=== PATIENT | female | born 1980 | race Caucasian/White ===

== ENCOUNTER 2018-05-15 20:22 | Emergency (ER) | payer SELFPAY ==
--- NOTE | 2018-05-15 22:18 | RADIOLOGY REPORT (SQ) ---
EXAM DESCRIPTION: XR CHEST 1 VIEW COMPLETED DATE/TME: 05/15/2018 21:48 CLINICAL HISTORY: 38 years, Female, sob COMPARISON: None. NUMBER OF VIEWS: 1 TECHNIQUE: Portable chest LIMITATIONS: None. FINDINGS: Heart size normal. Lungs clear. No pneumothorax IMPRESSION: Negative chest copyright 2011 [employer]- All Rights Reserved
[2018-05-15 22:35] LABS: ABSOLUTE BASOPHILS # (AUTO) 0.1 10^3/uL (0.0-0.2); ABSOLUTE EOSINOPHILS # (AUTO) 0.4 10^3/uL (0.0-0.6); ABSOLUTE LYMPHOCYTES (AUTO) 2.4 10^3/uL (0.5-4.7); ABSOLUTE MONOCYTES (AUTO) 0.5 10^3/uL (0.1-1.4); ABSOLUTE NEUT (AUTO) 6.6 10^3/uL (1.7-8.2); BASOPHILS % (AUTO) 0.9 % (0-2); EOSINOPHILS % (AUTO) 4.1 % (0-6); HEMATOCRIT 43.5 % (36.0-47.0); HEMOGLOBIN 15.4 g/dL (12.0-15.5); LYMPHOCYTES % (AUTO) 23.9 % (13-45); MEAN CORPUSCULAR HGB CONC 35.4 g/dL (32.0-36.0); MEAN CORPUSCULAR VOLUME 88 fl (80-97); MONOCYTES % (AUTO) 4.7 % (3-13); PLATELET COUNT 303 10^3/uL (150-450); RED BLOOD COUNT 4.97 10^6/uL (3.72-5.28); RED CELL DISTRIBUTION WIDTH 13.9 % (11.5-14.0); SEGMENTED NEUTROPHILS % (AUTO) 66.4 % (42-78); TOTAL CELLS COUNTED % (AUTO) 100 %; WHITE BLOOD COUNT 9.9 10^3/uL (4.0-10.5)
[2018-05-15 22:47] LABS: BLOOD UREA NITROGEN 11 mg/dL (7-20); CALCIUM 7.3 mg/dL (8.4-10.2); CARBON DIOXIDE 29 mmol/L (22-30); CHLORIDE 102 mmol/L (98-107); GLUCOSE 100 mg/dL (75-110); POTASSIUM 3.5 mmol/L (3.6-5.0)
[2018-05-15 22:52] LABS: ANION GAP 1 (5-19)
[2018-05-15 22:56] LABS: NT PRO BNP 83 pg/mL (<125)
[2018-05-15 22:59] LABS: TROPONIN I < 0.012 ng/mL
[2018-05-15 23:30] LABS: FREE T3 6.08 pg/mL (2.77-5.27); FREE T4 (FREE THYROXINE) 1.3 ng/dL (0.78-2.19)
[2018-05-15 23:44] LABS: THYROID STIMULATING HORMONE 8.2 uIU/mL (0.47-4.68)
--- NOTE | 2018-05-16 00:02 | ER Document Report ---
ED General - General Chief Complaint: Pedal Edema Stated Complaint: SWELLING,WEAKNESS Time Seen by Provider: 05/15/18 21:47 Primary Care Provider: ARTURO RUIZ PA-C [Primary Care Provider] - Follow up as needed Notes: Patient is a 38-year-old female with a past medical history of hypothyroidism after having her right lobe of her thyroid resected who presents with 7 months of intermittent bilateral lower extremity edema that has become much more pronounced within the last 24 hours. Patient states that the swelling was on and off in the past, had been seen in urgent care who she uses her primary care doctor. She states that they had started her on diuretics but that it did not provide any measurable relief. Became concerned when the swelling became markedly worse in the last 24 hours. Describes a tense, throbbing, moderate to severe pain in the bilateral lower extremities that is equal and symmetric. She denies any history of similar symptoms in the past. She has no history of VT E in the past. Does not use any form of estrogen. Has had a tubal ligation. Denies any history of orthopnea but does state that she feels more winded more easily. No chest pain. TRAVEL OUTSIDE OF THE [place] IN LAST 30 DAYS: No - Related Data Allergies/Adverse Reactions: benzonatate [From Tessalon Perles] Allergy (Verified 05/15/18 22:05) Sulfa (Sulfonamide Antibiotics) Allergy (Verified 05/15/18 22:05) Past Medical History - General Information source: Patient - Social History Smoking Status: Never Smoker Frequency of alcohol use: None Drug Abuse: None Lives with: Spouse/Significant other Family History: Reviewed & Not Pertinent Patient has suicidal ideation: No Patient has homicidal ideation: No Renal/ Medical History: Denies: Hx Peritoneal Dialysis Review of Systems - Review of Systems Notes: Constitutional: Negative for fever. HENT: Negative for sore throat. Eyes: Negative for visual changes. Cardiovascular: Negative for chest pain. Respiratory: Positive for shortness of breath Gastrointestinal: Negative for abdominal pain, vomiting or diarrhea. Genitourinary: Negative for dysuria. Musculoskeletal: Positive for bilateral lower extremity swelling and pain Skin: Negative for rash. Neurological: Negative for headaches, weakness or numbness. 10 point ROS negative except as marked above and in HPI. Physical Exam - Vital signs Vitals: Temp Pulse Resp BP Pulse Ox 98.3 F 88 18 149/99 H 96 05/15/18 20:52 05/15/18 20:52 05/15/18 20:52 05/15/18 20:52 05/15/18 20:52 Interpretation: Hypertensive Notes: PHYSICAL EXAMINATION: GENERAL: Well-appearing, well-nourished and in no acute distress. HEAD: Atraumatic, normocephalic. EYES: Pupils equal round and reactive to light, extraocular movements intact, sclera anicteric, conjunctiva are normal. ENT: nares patent, oropharynx clear without exudates. Moist mucous membranes. NECK: Normal range of motion, supple without lymphadenopathy LUNGS: Breath sounds clear to auscultation bilaterally and equal. No wheezes rales or rhonchi. HEART: Regular rate and rhythm without murmurs ABDOMEN: Soft, nontender, normoactive bowel sounds. No guarding, no rebound. No masses appreciated. EXTREMITIES: Normal range of motion, 2+ pitting edema in the bilateral lower extremities that is equal and symmetric just above the level of the knees bilaterally. No cyanosis. NEUROLOGICAL: No focal neurological deficits. Moves all extremities spontaneously and on command. PSYCH: Moderately anxious SKIN: Warm, Dry, normal turgor, no rashes or lesions noted. Course - Re-evaluation Re-evalutation: 05/16/18 00:01 Patient presents with bilateral lower extremity that is equal and symmetric there is been ongoing for the past 7 months but much worse within the past 24 hours. Differential would include high-level VTE such as an IVC occlusion, renal failure, liver failure, congestive failure, venous incompetence. Patient is not significantly overweight to indicate venous stasis. Laboratories do not demonstrate any evidence of renal failure, liver failure, BNP normal, chest x- ray normal. Troponin normal. Patient is status post sterilization although hCG will be completed to confirm that she is not . Thyroid studies within normal limits without evidence of significant hypothyroidism suggest myxedema picture. Will proceed with CT abdomen pelvis with venogram to definitively exclude a venous thromboembolus in the IVC given no alternative regional estimation for the degree of the patient's edema in the bilateral lower extremities. 05/16/18 02:26 Patient's IVC does not demonstrate any evidence of thrombus. I have gone back to the patient's bedside based on CT report as well as review of CT myself which does indeed demonstrate fluid above her liver collecting in the notable manner, diffusely enhanced bowel wall, colonic edema, nonspecific adenopathy and bibasilar pleural effusions. This is very unusual overall presentation. The patient is also noted to be borderline hypoxemic and when I had lie her flat she actually drops down to a saturation of 91% further supporting the radiographic demonstration of pleural effusions. The patient does report that she has had some nausea and vomiting and has had some intermittent abdominal pain. Her clinical picture is not consistent with a primary GI autoimmune condition such as Crohn's disease or ulcerative colitis given the additional features such as bilateral lower extremity edema, free fluid in the abdomen and pleural effusions. Likewise an infectious etiology does not make sense in this context. No fever, no leukocytosis, chronic duration of symptoms. Patient has no evidence of renal failure, liver failure or congestive failure. The only thing that makes sense to me at this point would be an autoimmune condition such as a vasculitis versus a atypical presentation of a lymphoma. Did review this case with our inpatient hospitalist Dr. Riddle. We determined together that given the atypical nature of this patient's presentation as well as the unclear nature of exactly what is causing her symptoms she likely needs a much more thorough investigation with rheumatology, GI and endocrinology none of which be available at this facility. 05/16/18 03:03 I discussed this case at length with Dr. Dick at [facility] who has accepted the patient in transfer. I have updated the patient on her care plan. She and her are in agreement with this plan. Patient remains clinically unchanged. 05/16/18 03:51 Patient remains appropriate for transport. ESR markedly elevated at 102. - Vital Signs Vital signs: Temp Pulse Resp BP Pulse Ox 98.1 F 103 H 15 134/75 H 93 05/16/18 03:32 05/16/18 03:32 05/16/18 03:32 05/16/18 03:32 05/16/18 03:32 - Laboratory Result Diagrams: 05/15/18 22:25 05/15/18 22:25 Laboratory results interpreted by me: 05/15/18 05/15/18 05/15/18 22:25 22:25 22:25 ESR Sodium 132.0 L Potassium 3.5 L Anion Gap 1 L Calcium 7.3 L Total Protein 3.9 L Albumin 2.1 L TSH 8.20 H Free T3 pg/mL 6.08 H 05/15/18 22:25 ESR 102 H Sodium Potassium Anion Gap Calcium Total Protein Albumin TSH Free T3 pg/mL - Diagnostic Test Radiology reviewed: Image reviewed, Reports reviewed Radiology results interpreted by me: 05/16/18 00:02 Chest x-ray: No acute infiltrate or pulmonary edema 05/16/18 03:03 CT scan abdomen and pelvis: Fluid collection noted above the level of the liver, diffuse enhancement of the small bowel Critical Care Note - Critical Care Note Total time excluding time spent on procedures (mins): 38 Comments: Critical care time spent obtaining history from patient or surrogate, discussing with family members on the phone, discussions with consultants, development of treatment plan with patient or surrogate, working on transfer, examination of patient, ordering and performing treatments and interventions, ordering and review of laboratory studies, re-evaluation of patient's condition, ordering and review of radiographic studies and review of old charts Discharge - Discharge Clinical Impression: Bilateral lower extremity edema, Inflammation of small intestine, Pleural effusion, Orthopnea, Shortness of breath Condition: Fair Disposition: [facility] Referrals: ARTURO RUIZ PA-C [Primary Care Provider] - Follow up as needed
[2018-05-16 00:24] LABS: ALANINE AMINOTRANSFERASE 31 U/L (9-52); ALBUMIN 2.1 g/dL (3.5-5.0); ALKALINE PHOSPHATASE 93 U/L (38-126); ASPARTATE AMINO TRANSFERASE 26 U/L (14-36); BILIRUBIN,DIRECT 0.2 mg/dL (0.0-0.4); BILIRUBIN,TOTAL 0.2 mg/dL (0.2-1.3); TOTAL PROTEIN 3.9 g/dL (6.3-8.2)
--- NOTE | 2018-05-16 01:27 | RADIOLOGY REPORT (SQ) ---
EXAM DESCRIPTION: CT abdomen pelvis with contrast CLINICAL HISTORY: 38 years Female; CT VENOGRAM, EVAL IVC OCCLUSION TECHNIQUE: CT of the abdomen and pelvis using intravenous 125 mL Omnip[address] scans at this facility use dose modulation, iterative reconstruction, and/or weight based dosing when appropriate to reduce radiation dose to as low as reasonably achievable. COMPARISON: None. FINDINGS: There are bilateral pleural effusions, 2.6 cm on the right and 1.8 cm on the left. Subsegmental posterior atelectasis is noted in both lower lobes. Abdomen: Liver: Fluid over the anterior surface of the liver is up to 9 mm thick. No focal lesion. No ductal distention. Gallbladder:Negative Pancreas:Within normal limits Spleen:Within normal limits Right kidney:No hydronephrosis. No focal lesion. Left kidney:No hydronephrosis. No focal lesion. Adrenal glands:Within normal limits Vascular structures: No filling defects in the inferior vena cava or iliac veins. Aorta and major branches are patent. Specifically, the superior mesenteric artery is patent. Pelvis: Small bowel: There is diffuse wall enhancement, but no distention. Scattered subthreshold mesenteric lymph nodes are noted. No significant mesenteric edema. Appendix:Within normal limits Colon: Mild edema along the proximal colon, but no distention. Moderate amount of low-density fluid in the dependent portion of the pelvis. No free air. Uterus: Bilateral tubal occlusion wires are noted. Left adnexa: 1.5 cm low-density structure with adjacent fluid, typical for dominant follicle. No significant adnexal enlargement. No pelvic adenopathy. Bony structures are unremarkable. There is diffuse bilateral subcutaneous flank edema, but no focal fluid collection in the abdominal wall. IMPRESSION: 1. IVC and iliac veins are patent without filling defects. 2. Small bilateral pleural effusions and small amount of free intraperitoneal fluid. No discrete abscess. 3. Mild diffuse small bowel wall enhancement, suggesting "shock bowel" typically seen following a hypotensive episode. No bowel obstruction or perforation. 4. Subthreshold reactive mesenteric adenopathy. 5. Left ovarian dominant follicle. Bilateral tubal occlusion wires.
[2018-05-16 03:21] LABS: C-REACTIVE PROTEIN 5.8 mg/L (<10.0)
--- NOTE | 2018-05-16 07:49 | EKG REPORT ---
SEVERITY:- NORMAL ECG - SINUS RHYTHM : Confirmed by: Man Nogueira MD 16-May-2018 07:49:10
--- NOTE | 2018-05-16 08:07 | ER Document Report ---
Doctor's Note Notes: 05/16/18 08:07 Patient seen and examined. Questions answered prior to transfer, patient stated she was prepared for transport, and no further questions at this time, she was hemodynamically stable, and she signout given to transfer team.
[2018-05-16 08:08] VITALS: BP 126/72
== END 2018-05-16 08:09 | disposition short-term general hospital (02) ==
LOC: ER 20:22
DX: R60.9 Edema, unspecified (principal); J90 Pleural effusion, not elsewhere classified; K52.9 Noninfective gastroenteritis and colitis, unspecified; R06.01 Orthopnea; R06.02 Shortness of breath; Z88.2 Allergy status to sulfonamides
CPT/HCPCS: 36415; 71045; 74177; 80048; 80076; 83880; 84439; 84443; 84481; 84484; 84703; 85025; 85652; 86140; 93005; 93010; 99291

== ENCOUNTER 2018-11-17 05:52 | Emergency (ER) | payer MEDICAID ==
[2018-11-17 05:59] VITALS: BP 140/64
--- NOTE | 2018-11-17 06:18 | ER Document Report ---
HPI - HPI Patient complains to provider of: insect bites to hands Time Seen by Provider: 11/17/18 06:02 Onset: This morning Onset/Duration: Sudden Quality of pain: Achy Context: 38-year female presents to the emergency department with possible insect bites to her hands. Patient reports she woke up with her hands sore and multiple insect bites. Did not see anything bite her. No other insect bites to her body. She reports she did wash her hands in cold water. She googled her symptoms could be due to a possible brown recluse or black spider. No complaints of fever/vomiting/diarrhea. 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 Denies: Hx Peritoneal Dialysis Surgical Hx: Negative Vertical Provider Document - CONSTITUTIONAL Agree With Documented VS: Yes Exam Limitations: No Limitations General Appearance: WD/WN, No Apparent Distress - INFECTION CONTROL TRAVEL OUTSIDE OF THE [place] IN LAST 30 DAYS: No - HEENT HEENT: Atraumatic, Normocephalic - NECK Neck: Supple - RESPIRATORY Respiratory: No Respiratory Distress - CARDIOVASCULAR Cardiovascular: Regular Rate - MUSCULOSKELETAL/EXTREMETIES Musculoskeletal/Extremeties: MAEW, FROM, Tender - erythema, possible insect bites to bilateral thumbs, fingers. no open sores, no vesicles, blanches, cap refill <3sec - NEURO Level of Consciousness: Awake, Alert, Appropriate Motor/Sensory: No Motor Deficit - DERM Integumentary: Warm, Dry, Rash - several erythemic flat areas to both hands, two areas to her thumbs that appear to be possible insect bites, no open wounds, no sores Course - Re-evaluation Re-evalutation: 11/17/18 06:31 This patient presents emergency department with what appears to be possible insect bites to her hands. Erythema noted no blistering no open sores. Patient was instructed to monitor sites. She was instructed to take Benadryl as indicated do not itch follow-up with her primary care provider. She was instructed to return here for worsening symptoms she verbalized understanding to all instructions. Dictation of this chart was performed using voice recognition software; therefore, there may be some unintended grammatical errors. - Vital Signs Vital signs: Temp Pulse Resp BP Pulse Ox 98.3 F 88 8 L 140/64 H 100 11/17/18 05:57 11/17/18 05:57 11/17/18 05:57 11/17/18 05:57 11/17/18 05:57 Discharge - Discharge Clinical Impression: Insect bite Qualifiers: Encounter type: initial encounter Site of insect bite: unspecified site Qualified Code(s): W57.XXXA - Bitten or stung by nonvenomous insect and other nonvenomous arthropods, initial encounter Condition: Stable Disposition: HOME, SELF-CARE Instructions: Use of Diphenhydramine, Insect Bites ([facility]) Additional Instructions: *You have been treated for possible insect bites to your hands *Monitor your hands for signs of infection such as increased pain, redness swelling warmth *Take Benadryl as indicated, wash your hands in cool water *Follow up with a primary care provider this week for recheck *Return to ED for signs of infection, worsening condition, changes, needs Referrals: ARTURO RUIZ PA-C [NO LOCAL MD] - Follow up in 3-5 days
== END 2018-11-17 06:29 | disposition home or self-care (01) ==
LOC: ER 05:52
DX: S60.562A Insect bite (nonvenomous) of left hand, initial encounter (principal); S60.561A Insect bite (nonvenomous) of right hand, initial encounter; R21 Rash and other nonspecific skin eruption; W57.XXXA Bitten or stung by nonvenomous insect and other nonvenomous arthropods, initial encounter
CPT/HCPCS: 99283

== ENCOUNTER → 2018-12-15 | Outpatient (CLI) | payer MEDICAID ==
--- NOTE | 2018-12-15 11:45 | WOMENS IMAGING REPORT ---
EXAM DESCRIPTION: U/S THYROID/ST TIS HEAD NECK COMPLETED DATE/TIME: 12/15/2018 7:18 am REASON FOR STUDY: Z85.850 PERSONAL HISTORY OF MALIGNANT NEOPLASM OF THYROID Z85.850 PERSONAL HISTOR Y OF MALIGNANT NEOPLASM OF THYROID COMPARISON: None. TECHNIQUE: Dynamic and static cabral-scale images acquired of the thyroid gland. Selected additional c olor/power Doppler images recorded. All images stored to PACS. LIMITATIONS: None. FINDINGS: RIGHT LOBE: Surgically absent. LEFT LOBE: Normal size. Heterogeneous echotexture. 7 mm hyperechoic nodule with smooth margins and no calcifications. There is a 2nd solid nodule measuring just under 4 mm with similar morphology. ISTHMUS: Normal size. Homogeneous echotexture. No cystic or solid masses. OTHER: No other significant finding. IMPRESSION: 2 solid nodules in the left lobe status post right lobectomy. Not suspicious. COMMENT: TR-2 TECHNICAL DOCUMENTATION: JOB ID: [id number] [employer]- All Rights Reserved Reading location - IP/workstation name: [email or web address]
== END ==
LOC: WI 06:40
PROVIDERS: ATTEND Otolaryngology
DX: E04.1 Nontoxic single thyroid nodule (principal); Z08 Encounter for follow-up examination after completed treatment for malignant neoplasm; Z85.850 Personal history of malignant neoplasm of thyroid
CPT/HCPCS: 76536

== ENCOUNTER → 2019-04-15 | Outpatient (CLI) | payer MEDICAID ==
[2019-04-15 12:15] LABS: FREE T4 (FREE THYROXINE) 0.89 ng/dL (0.78-2.19)
[2019-04-15 12:29] LABS: THYROID STIMULATING HORMONE 4.91 uIU/mL (0.47-4.68)
[2019-04-16 08:37] LABS: T3 UPTAKE (RESIN) 22 % (24-39)
[2019-04-16 10:27] LABS: THYROID PEROXIDASE (TPO) AB 223 IU/mL (0-34)
== END ==
LOC: OD 10:17
PROVIDERS: ATTEND Otolaryngology
DX: Z08 Encounter for follow-up examination after completed treatment for malignant neoplasm (principal); Z85.850 Personal history of malignant neoplasm of thyroid
CPT/HCPCS: 36415; 84439; 84443; 84479; 86376

== ENCOUNTER → 2019-07-17 | Outpatient (CLI) | payer MEDICAID ==
[2019-07-17 10:20] LABS: HEMATOCRIT 35.3 % (36.0-47.0); HEMOGLOBIN 11.6 g/dL (12.0-15.5); MEAN CORPUSCULAR HGB CONC 32.9 g/dL (32.0-36.0); MEAN CORPUSCULAR VOLUME 76 fl (80-97); PLATELET COUNT 232 10^3/uL (150-450); RED BLOOD COUNT 4.64 10^6/uL (3.72-5.28); RED CELL DISTRIBUTION WIDTH 15.5 % (11.5-14.0); WHITE BLOOD COUNT 5.9 10^3/uL (4.0-10.5)
[2019-07-17 10:34] LABS: APPEARANCE,URINE CLEAR; BILIRUBIN,URINE NEGATIVE (NEGATIVE); COLOR,URINE YELLOW; GLUCOSE, URINE NEGATIVE (NEGATIVE); KETONES,URINE NEGATIVE (NEGATIVE); LEUKOCYTE ESTERASE,URINE NEGATIVE (NEGATIVE); NITRITE,URINE NEGATIVE (NEGATIVE); PROTEIN,URINE NEGATIVE (NEGATIVE); URINE SPECIFIC GRAVITY 1.012; UROBILINOGEN,URINE NEGATIVE mg/dL (<2.0)
[2019-07-17 10:46] LABS: ALBUMIN 4.1 g/dL (3.5-5.0); ALKALINE PHOSPHATASE 78 U/L (38-126); ANION GAP 9 (5-19); ASPARTATE AMINO TRANSFERASE 27 U/L (14-36); BILIRUBIN,TOTAL 0.2 mg/dL (0.2-1.3); BLOOD UREA NITROGEN 11 mg/dL (7-20); CALCIUM 9.4 mg/dL (8.4-10.2); CARBON DIOXIDE 26 mmol/L (22-30); CHLORIDE 101 mmol/L (98-107); GLUCOSE 102 mg/dL (75-110); POTASSIUM 4.3 mmol/L (3.6-5.0); TOTAL PROTEIN 6.6 g/dL (6.3-8.2)
[2019-07-17 10:59] LABS: URINE CREATININE 87.1 mg/dL (16-327)
== END ==
LOC: OD 09:16
PROVIDERS: ATTEND Internal Medicine Nephrology
DX: N05.0 Unspecified nephritic syndrome with minor glomerular abnormality (principal)
CPT/HCPCS: 36415; 80053; 81001; 82570; 84156; 85027

== ENCOUNTER 2019-08-08 09:16 | Emergency (ER) | payer MEDICAID ==
[2019-08-08 09:24] VITALS: BP 145/80
--- NOTE | 2019-08-08 10:33 | ER Document Report ---
HPI - HPI Time Seen by Provider: 08/08/19 10:20 Pain Level: 2 Context: Patient is a 39-year-old female presents emergency department with a chief complaint of bilateral eye burning. Patient states that her symptoms started about 2 days ago. Patient also reports blurred vision. Patient is a contact wearer. Patient states that she went home yesterday and was able to take her contacts out and visualized that they were intact. - EENT EENT: REPORTS: Eye problems. DENIES: Sore Throat, Ear Pain, Nasal Drainage- Clear, Nasal Drainage-Purulent, Congestion - GASTROINTESTINAL Gastrointestinal: DENIES: Abdominal Pain - REPRODUCTIVE Reproductive: DENIES: : - DERM Skin Color: Normal Skin Problems: None Past Medical History - Social History Smoking Status: Never Smoker Chew tobacco use (# tins/day): No Frequency of alcohol use: None Drug Abuse: None Family History: Reviewed & Not Pertinent Renal/ Medical History: Denies: Hx Peritoneal Dialysis Past Surgical History: Reports: Hx Tubal Ligation Vertical Provider Document - CONSTITUTIONAL Agree With Documented VS: Yes Exam Limitations: No Limitations General Appearance: No Apparent Distress - INFECTION CONTROL TRAVEL OUTSIDE OF THE [place] IN LAST 30 DAYS: No - HEENT HEENT: Atraumatic, Conjuctival Injection, Normocephalic, PERRLA - NECK Neck: Normal Inspection - RESPIRATORY Respiratory: Breath Sounds Normal, No Respiratory Distress - CARDIOVASCULAR Cardiovascular: Regular Rate, Regular Rhythm Pulses: Normal: Radial - MUSCULOSKELETAL/EXTREMETIES Musculoskeletal/Extremeties: FROM - NEURO Level of Consciousness: Awake, Alert, Appropriate - DERM Integumentary: Warm, Dry, No Rash Course - Re-evaluation Re-evalutation: 08/08/19 PERRL, conjunctiva erythematous, all extraocular movements intact, sclera nonicteric; negative Bk sign, negative for globe rupture, no foreign body noted. We will start the patient on Polytrim eyedrops and ketorolac eyedrops. Patient will follow-up with ophthalmology if she continues to have pain. Follow-up precautions were given. Verbal discharge instructions were given to the patient. They verbalized understanding. They are stable for discharge. - Vital Signs Vital signs: Temp Pulse Resp BP Pulse Ox 98.5 F 68 16 145/80 H 98 08/08/19 09:21 08/08/19 09:21 08/08/19 09:21 08/08/19 09:21 08/08/19 09:21 Discharge - Discharge Clinical Impression: Conjunctivitis Qualifiers: Conjunctivitis type: acute Acute conjunctivitis type: unspecified Laterality: bilateral Qualified Code(s): H10.33 - Unspecified acute conjunctivitis, bilateral Condition: Stable Disposition: HOME, SELF-CARE Instructions: Conjunctivitis ([facility]), Eyedrop Use ([facility]) Additional Instructions: You were seen today in the emergency department for migraine. Use the antibiotic eyedrops as prescribed. Use ketorolac eyedrops to help with pain. If you continue to have eye problems, follow-up with ophthalmology. Prescriptions: Ketorolac Tromethamine 5 ml OP ASDIR PRN #1 bottle PRN Reason: Polymyxin B Sulf/Trimethoprim [Polytrim Eye Drops] 1 drop OD Q3H 7 Days #10 ml Forms: Return to Work Referrals: MOSES LANDIN [NO LOCAL MD] - Follow up as needed JESÚS RIVERA MD [ACTIVE STAFF] - Follow up as needed
[2019-08-08] MEDS ORDERED: TETRACAINE HCL 0.5% OPH SOLN 4 ML OU ONE (10:42)
== END 2019-08-08 10:46 | disposition home or self-care (01) ==
LOC: ER 09:16
DX: H10.33 Unspecified acute conjunctivitis, bilateral (principal); H57.13 Ocular pain, bilateral; H53.8 Other visual disturbances
CPT/HCPCS: 99283; J3490